=== PATIENT | male | born 1955 | race Caucasian/White ===

== ENCOUNTER 2021-04-08 01:01 | Day surgery (SDC) | payer BC, SELFPAY ==
[2021-04-08 07:40] VITALS: BP 131/81; PULSE 106; RESP 17; TEMP 36.6; O2SAT 96; BMI 34.4
[2021-04-08] MEDS: LACTATED RINGERS 1,000 ML 150 ML IV CONT (07:43)
--- NOTE | 2021-04-08 07:49 | PM.HPGS ---
History of Present Illness History of Present Illness Consent: Risks, benefits, and alternatives have been discussed and questions answered. Patient agrees to proceed with procedure. Chief complaint: hx of colon polyps Narrative: Oli Paiz is a 65 year old male here for colon cancer screening. He had a polyp or 2 removed about 5 years ago. Review of Systems Review of Systems: All systems reviewed & are unremarkable except as noted in HPI and below PMFSH Social History Social History Smoking status: Never smoker Drinks per week: 4 Alcohol use details: liquor and beer Substance use: never Substance use type: does not use Living arrangements: with family Gender identity (if verbalized by the patient): Male Spiritual care concerns: No Meds Home Medications and Allergies Home Medications Medication Instructions Recorded Confirmed Type Aleve 1 cap PO DAILY 03/26/21 04/08/21 History Allergies Allergy/AdvReac Type Severity Reaction Status Date / Time No Known Allergies Allergy Verified 04/08/21 07:38 Vital Signs Vital Signs - 24 hr 04/08/21 07:40 Temperature 36.6 C Pulse Rate 106 H Respiratory Rate 17 Blood Pressure 131/81 Pulse Oximetry 96 Exam Resp: Auscultation: clear to auscultation bilaterally Cardio: Rate: regular rate Rhythm: regular rhythm GI: GI Palp: Yes Soft to palpation and No Tenderness to palpation present (GI) Assessment and Plan Assessment and plan (1) Colon cancer screening: Code(s): Z12.11 - Encounter for screening for malignant neoplasm of colon Status: Acute Assessment and Plan: Colonoscopy with possible biopsy or polypectomy or cautery or injection of substances.
--- NOTE | 2021-04-08 08:16 | P.PNAN_ITS ---
Anes - Initial Pre Proc Eval Procedure: Operation Date: 04/08/21 08:30 Proposed Procedures p Screening Colonoscopy - Douglas Hamm MD Date/Time: 04/08/21 08:16 Surgeon: Douglas Hamm MD Pre Op Diagnosis: hx of colon polyps Patient Data Age: 65 Gender: M Height: 1.78 m Weight: 108.9 kg Last Vital Signs Temp 97.8 F 04/08/21 07:40 Pulse 106 H 04/08/21 07:40 Resp 17 04/08/21 07:40 BP 131/81 04/08/21 07:40 Pulse Ox 96 04/08/21 07:40 Allergies Allergy/AdvReac Type Severity Reaction Status Date / Time No Known Allergies Allergy Verified 04/08/21 07:38 Home Medications Medication Instructions Recorded Confirmed Type Aleve 1 cap PO DAILY 03/26/21 04/08/21 History Patient hx anesthesia problems: none Family hx anesthesia problems: none [facility], [facility] Past Medical History Medical History (Updated 04/08/21 @ 08:16 by Parth Ames MD) Obesity Social History Social History Smoking status: Never smoker Drinks per week: 4 Alcohol use details: liquor and beer Substance use: never Substance use type: does not use Living arrangements: with family Gender identity (if verbalized by the patient): Male Spiritual care concerns: No Anes - Eval Final PreProcedure Day of Procedure 04/08/21 08:16 Patient weight: obese Heart: regular rate and rhythm Lungs: clear to auscultation Airway: Mallampati scale class II Neurological: alert and oriented Last oral intake: >/= 8 hours ASA classification: II Emergent: no Anesthetic plan: proceed Anesthesia type and monitoring: general GIVS and standard monitoring Informed Consent: The patient's anesthetic plan and its attendant risks and benefits were discussed with the patient/family/POA. Questions were solicited and answers provided to the satisfaction of the patient/family/POA.
[2021-04-08 08:51] VITALS: BP 136/57; PULSE 96; RESP 17; O2SAT 95
[2021-04-08 09:01] VITALS: BP 111/68; PULSE 82; RESP 19; O2SAT 96
[2021-04-08 09:11] VITALS: BP 100/77; PULSE 69; RESP 26; O2SAT 100
== END 2021-04-08 09:22 | disposition home or self-care (01) ==
PROVIDERS: PCP Internal Medicine; Visit Provider Internal Medicine Gastroenterology
PROC: 0DJD8ZZ Inspection of Lower Intestinal Tract, Via Natural or Artificial Opening Endoscopic (ICD-10-PCS; CPT 45378; principal; 2021-04-08 08:30)
DX: Z12.11 Encounter for screening for malignant neoplasm of colon (principal); Z86.010 Personal history of colon polyps; E66.9 Obesity, unspecified; Z68.34 Body mass index [BMI] 34.0-34.9, adult
CPT/HCPCS: 45378; J2704; J7120

== ENCOUNTER 2025-02-04 09:44 | Outpatient (CLI) | payer MEDICARE, SELFPAY ==
--- NOTE | ~2025-02-04 | US_ITS ---
TESTICULAR ULTRASOUND (Doppler ultrasound interrogation techniques used as needed for this exam.) Ordering provider: Kev Wei, History: . testicular mass . Comparison: None. FINDINGS: TESTICLES: Normal in size. The right measures 4.8x 3.2x 3.4 cm and the left measures 5.2x 3.1x 3 cm. Normal echogenicity bilaterally without mass lesion. Normal Doppler flow bilaterally. EPIDIDYMIDES: Normal in size. The right measures 0.8 cm and the left 0.8 cm. Normal echogenicity bila terally. Both demonstrate normal Doppler flow. HYDROCELE: Large Left with mobile debris VARICOCELE: None. OTHER ABNORMALITY: None seen. IMPRESSION: Large Left hydrocele with mobile debris. Otherwise, normal testicular ultrasound. Reviewed, dictated and finalized at location A. IMPRESSION: Large Left hydrocele with mobile debris. Otherwise, normal testicular ultrasoun d.
== END 2025-02-04 09:45 | disposition home or self-care (01) ==
LOC: GOSHIMG 09:45
PROVIDERS: PCP Internal Medicine; Visit Provider Internal Medicine
DX: N50.89 Other specified disorders of the male genital organs (principal)
CPT/HCPCS: 76870; 93976